=== PATIENT | male | born 1990 | race Caucasian/White ===

== ENCOUNTER 2020-04-24 18:21 | Inpatient (IN) | payer SELFPAY ==
[2020-04-24] VITALS (10 sets, daily range): BP systolic 111–156; BP diastolic 62–107; PULSE 82–122; RESP 17–25; TEMP 36.6; O2SAT 90–98; BMI 23.3
--- NOTE | 2020-04-24 18:59 | W.ED.PSYCH ---
HPI - Psych General: Chief Complaint: Psychiatric Symptoms Stated Complaint: PSYCH RELATED ISSUES Time Seen by Provider: 04/24/20 18:44 Source: patient and family (ex ) Mode of arrival: ambulatory History of Present Illness: HPI Narrative: Patient is a 29-year-old male with a history of IV drug abuse, daily alcohol intake, he claims he takes about half a gallon of whiskey every day. He also smokes meth and marijuana. He claims that he has been complaining of drugs until today. He states he has had some life stressors and when someone offered him methamphetamines today he took. He did not go into what his life stressors are. After he did the drugs he called his ex- crying and asking for help. He says he is suicidal, does not have a plan but he fears he will harm himself if he goes home. complaint: suicidal ideation Duration: constant Relieving factors: none Exacerbating factors: alcohol and drug use Context: recent alcohol abuse and recent drug abuse Associated psychiatric symptoms: depression, suicidal ideation, auditory hallucinations and visual hallucinations Associated symptoms: Reports auditory hallucinations, visual hallucinations and suicidal ideation Review of Systems General: Reports: 10 or more systems reviewed and unremarkable except in HPI and below Const: Denies: fever(s), chills or body aches Eyes: Denies: change in vision or blurry vision ENMT: Denies: throat pain, enlarged tonsils, odynophagia, hoarseness, mouth pain or swelling of lips/tongue Card: Reports: chest pain; Denies: palpitations, irregular heart rhythm, edema or swelling of feet/ankles Resp: Denies: dyspnea, productive cough or non-productive cough GI: Denies: abdominal pain, nausea or vomiting : Denies: flank pain, dysuria, urinary frequency, urinary urgency or urinary hesitancy Musc: Denies: neck pain, back pain or extremity swelling Skin/Breast: Denies: rash, pruritus or erythema Neuro: Denies: headache(s), numbness in extremities or weakness in extremities Psych: Reports: visual hallucinations, auditory hallucinations and suicidal ideation Endo: Denies: polyuria, polydipsia or tired all the time PFSH ED PFSH: Social History Current gender identity: Male Physical Exam Const: COMMON NORMALS: no acute distress, average body habitus, patient oriented x3, no limitations, healthy appearing, alert and well nourished HENMT: COMMON NORMALS: normocephalic, atraumatic and moist oral mucous membranes HEAD & SCALP: normocephalic and atraumatic Neck/C-Spine: COMMON NORMALS: no meningeal signs and no JVD Resp: COMMON NORMALS: normal respiratory effort, No retractions, No use of accessory muscles, clear to auscultation bilaterally and percussion normal AUSCULTATION: clear to auscultation bilaterally PERCUSSION: percussion normal Cardio: COMMON NORMALS: no JVD, regular rate, regular rhythm, S1 normal heart sound present, S2 normal heart sound present, No gallops present (Cardio), No clicks present (Cardio), No murmurs present (Cardio), No rub (Cardio) and Peripheral pulses 2+ throughout RATE: regular rate RHYTHM: regular rhythm HEART SOUNDS: S1 normal heart sound present and S2 normal heart sound present PERIPHERAL PULSES: Peripheral pulses 2+ throughout GI: COMMON NORMALS: Normal to inspection, nondistended, normoactive bowel sounds present, Soft to palpation, non-tender, No hepatosplenomegaly present, no masses and no bruits PALPATION: Yes Soft to palpation and Yes No hepatosplenomegaly present Extremity: COMMON NORMALS: normal to inspection, full ROM, capillary refill normal, no calf tenderness and no pedal edema Neuro: COMMON NORMALS: patient oriented x3 SENSORIUM/ORIENTATION: Yes alert MENINGEAL SIGNS: Yes no meningeal signs Skin: COMMON NORMALS: no rashes or lesions noted, no wounds, turgor normal, no jaundice, no petechiae and no mottling GENERAL SKIN EXAM: no rashes or lesions noted and turgor normal MDM - Psych MDM Narrative: Medical decision making narrative: 29-year-old male patient who was brought into the emergency department in acute psychosis, likely drug-induced. The patient admits to using methamphetamines today after not using for about 2 years. He also is an alcoholic. He was having visual and auditory hallucinations including hearing the emergency department. The patient was under the influence throughout his ED stay and was not very cooperative and at that time started flailing in bed, swinging at things in the air probably having visual hallucinations. At this point and for his safety he was chemically restrained with intramuscular ketamine and Ativan, he was also physically restrained for short time until the medication kicked in. He was medically cleared and admitted to the neuropsychiatric unit for further evaluation and management. Medical Records: Attestation: I reviewed the patient's medical records. Lab Data: Attestation: I reviewed the patient's lab results. Labs: Lab Results 04/24/20 04/24/20 04/24/20 Range/Units 18:49 18:49 19:15 WBC 11.6 H (4.0-10.0) 10^3/ uL RBC 5.26 (4.1-5.3) 10^6/u L Hgb 16.5 (11.7-16.6) g/dL Hct 50.1 (42.0-52.0) % MCV 95.2 H (80-94) fL MCH 31.4 (28.0-34.0) pg MCHC 32.9 (30.0-36.0) g/dL RDW 13.0 (12.1-15.1) % Plt Count 371 (130-400) 10^3/c mm MPV 9.5 (7.4-10.4) fL Neut % (Auto) 44.3 % Lymph % (Auto) 44.1 % Carlisle % (Auto) 7.8 % Eos % (Auto) 2.5 % Baso % (Auto) 0.4 % Neut # (Auto) 5.12 (1.8-7.7) 10^3/u L Lymph # (Auto) 5.1 H (0.8-4.8) 10^3/u L Carlisle # (Auto) 0.9 (0.2-0.9) 10^3/u L Eos # (Auto) 0.3 (0.0-0.8) 10^3/u L Baso # (Auto) 0.1 (0.0-0.1) 10^3/u L Nucleated RBC % (a uto) 0 % Nucleated RBCs # 0.0 /100WBC Sodium 139 (136-145) mmol/L Potassium 4.1 (3.5-5.1) mmol/L Chloride 103 (98-107) mmol/L Carbon Dioxide 26 (22-29) mmol/L Anion Gap 14.1 (5-19) BUN 10 (6-20) mg/dL Creatinine 0.7 (0.7-1.2) mg/dL GFR Calculation 135.3 H (90-130) mL/min Glucose 89 (65-115) mg/dL Calculated Osmolal ity 287 (285-295) mOsm/k g Calcium 9.6 (8.5-10.5) mg/dL Total Bilirubin 0.2 (0.15-1.2) mg/dL AST 68 H (0-40) U/L ALT 157 H (0-41) U/L Alkaline Phosphata se 72 (40-130) IU/L Total Protein 8.4 (6.6-8.7) g/dL Albumin 4.5 (3.5-5.2) g/dL Globulin 3.9 (1.3-4.6) g/dL Urine Color (Yellow) Urine Appearance (CLEAR) Urine pH (5-7) Ur Specific Gravit y (1.005-1.030) Urine Protein (Negative) Urine Glucose (UA) (Normal) Urine Ketones (Negative) Urine Blood (Negative) Urine Nitrate (Negative) Urine Bilirubin (Negative) Urine Urobilinogen (Negative) mg/dL Ur Leukocyte Alda ase (Negative) Salicylates < 0.3 L (3-10) mg/dL Urine Opiates Scre en Negative (Negative) ng/mL Acetaminophen < 5.0 L (10-30) ug/mL Ur Barbiturates Sc reen Negative (Negative) ng/mL Ur Phencyclidine S crn Negative (Negative) ng/mL Ur Amphetamines Sc reen Positive H (Negative) ng/mL U Benzodiazepines Scrn Negative (Negative) ng/mL Urine Cocaine Scre en Negative (Negative) ng/mL U Marijuana (THC) Screen Positive H (Negative) ng/mL Ethyl Alcohol 162 H (0-10) mg/dL 04/24/20 Range/Units 19:15 WBC (4.0-10.0) 10^3/ uL RBC (4.1-5.3) 10^6/u L Hgb (11.7-16.6) g/dL Hct (42.0-52.0) % MCV (80-94) fL MCH (28.0-34.0) pg MCHC (30.0-36.0) g/dL RDW (12.1-15.1) % Plt Count (130-400) 10^3/c mm MPV (7.4-10.4) fL Neut % (Auto) % Lymph % (Auto) % Carlisle % (Auto) % Eos % (Auto) % Baso % (Auto) % Neut # (Auto) (1.8-7.7) 10^3/u L Lymph # (Auto) (0.8-4.8) 10^3/u L [place] # (Auto) (0.2-0.9) 10^3/u L Eos # (Auto) (0.0-0.8) 10^3/u L Baso # (Auto) (0.0-0.1) 10^3/u L Nucleated RBC % (a uto) % Nucleated RBCs # /100WBC Sodium (136-145) mmol/L Potassium (3.5-5.1) mmol/L Chloride (98-107) mmol/L Carbon Dioxide (22-29) mmol/L Anion Gap (5-19) BUN (6-20) mg/dL Creatinine (0.7-1.2) mg/dL GFR Calculation (90-130) mL/min Glucose (65-115) mg/dL Calculated Osmolal ity (285-295) mOsm/k g Calcium (8.5-10.5) mg/dL Total Bilirubin (0.15-1.2) mg/dL AST (0-40) U/L ALT (0-41) U/L Alkaline Phosphata se (40-130) IU/L Total Protein (6.6-8.7) g/dL Albumin (3.5-5.2) g/dL Globulin (1.3-4.6) g/dL Urine Color Yellow (Yellow) Urine Appearance Clear (CLEAR) Urine pH 5 (5-7) Ur Specific Gravit y 1.010 (1.005-1.030) Urine Protein Neg (Negative) Urine Glucose (UA) Norm (Normal) Urine Ketones Negative (Negative) Urine Blood Neg (Negative) Urine Nitrate Negative (Negative) Urine Bilirubin Neg (Negative) Urine Urobilinogen Norm (Negative) mg/dL Ur Leukocyte Alda ase Negative (Negative) Salicylates (3-10) mg/dL Urine Opiates Scre en (Negative) ng/mL Acetaminophen (10-30) ug/mL Ur Barbiturates Sc reen (Negative) ng/mL Ur Phencyclidine S crn (Negative) ng/mL Ur Amphetamines Sc reen (Negative) ng/mL U Benzodiazepines Scrn (Negative) ng/mL Urine Cocaine Scre en (Negative) ng/mL U Marijuana (THC) Screen (Negative) ng/mL Ethyl Alcohol (0-10) mg/dL EKG Data^: EKG 1: Attestation: I personally reviewed and interpreted this EKG as follows: EKG interpretation date: 04/24/20 EKG interpretation time: 20:25 Prior EKG tracings: not available for review Interpretation: Normal sinus rhythm. Heart rate 87 bpm. Normal axis. No ST changes. Discharge Plan Discharge Patient Disposition: Admitted As Inpatient Admit Provider: Jourdan Justin Clinical Impression: Acute psychosis, Polysubstance abuse Drug-induced psychotic disorder Qualifiers: Complication of substance-induced condition: with hallucinations Qualified Code(s): F19.951 - Other psychoactive substance use, unspecified with psychoactive substance-induced psychotic disorder with hallucinations Alcohol dependence Qualifiers: Substance use status: with intoxication Complication of substance-induced condition: with delirium Qualified Code(s): F10.221 - Alcohol dependence with intoxication delirium Condition: Stable Coding Level of Care Code ED Inside Technical Sales Representative for Nancy Bolaños Exam Comprehensive
[2020-04-24 19:04] LABS: Basophils # 0.1 10^3/uL (0.0-0.1); Basophils % 0.4 %; Eosinophils # 0.3 10^3/uL (0.0-0.8); Eosinophils % 2.5 %; Hematocrit 50.1 % (42.0-52.0); Hemoglobin 16.5 g/dL (11.7-16.6); Lymphocytes # 5.1 10^3/uL (0.8-4.8); Lymphocytes % 44.1 %; Mean Corpuscular HGB Conc 32.9 g/dL (30.0-36.0); Mean Corpuscular Hemoglobin 31.4 pg (28.0-34.0); Mean Corpuscular Volume 95.2 fL (80-94); Mean Platelet Volume 9.5 fL (7.4-10.4); Monocytes # 0.9 10^3/uL (0.2-0.9); Monocytes % 7.8 %; Neutrophils # 5.12 10^3/uL (1.8-7.7); Neutrophils % 44.3 %; Nucleated Red Blood Cells % 0 %; Platelet Count 371 10^3/cmm (130-400); Red Blood Count 5.26 10^6/uL (4.1-5.3); White Blood Count 11.6 10^3/uL (4.0-10.0)
[2020-04-24 19:17] LABS: Alanine Aminotransferase 157 U/L (0-41); Albumin Level 4.5 g/dL (3.5-5.2); Alcohol Level 162 mg/dL (0-10); Alkaline Phosphatase 72 IU/L (40-130); Anion Gap 14.1 (5-19); Aspartate Amino Transferase 68 U/L (0-40); Blood Urea Nitrogen 10 mg/dL (6-20); Calcium 9.6 mg/dL (8.5-10.5); Carbon Dioxide 26 mmol/L (22-29); Chloride 103 mmol/L (98-107); Globulin 3.9 g/dL (1.3-4.6); Glomerular Filtration Rate 135.3 mL/min (90-130); Glucose 89 mg/dL (65-115); Osmolality Calculated 287 mOsm/kg (285-295); Potassium 4.1 mmol/L (3.5-5.1); Sodium 139 mmol/L (136-145); Total Bilirubin 0.2 mg/dL (0.15-1.2); Total Protein 8.4 g/dL (6.6-8.7)
[2020-04-24 19:18] LABS: Acetaminophen < 5.0 ug/mL (10-30); Salicylate < 0.3 mg/dL (3-10)
[2020-04-24] MEDS: LORazepam 2 mg/mL INJ 1 mL IM (19:53)
[2020-04-24 20:22] LABS: Amphetamines Screen Urine Positive (Negative); Barbiturates Screen Urine Negative (Negative); Benzodiazepines Screen Urine Negative (Negative); Cocaine Screen Urine Negative (Negative); Opiate Screen Urine Negative (Negative); PCP Screen Urine Negative (Negative); THC Screen Urine Positive (Negative)
[2020-04-24 22:06] LABS: Add Urine Microscopic? NO
[2020-04-24 22:29] LABS: Bilirubin Urine Neg (Negative); Blood Urine Neg (Negative); Glucose Urine UA Norm (Normal); Ketones Urine Negative (Negative); Leukocyte Esterase Urine Negative (Negative); Nitrate Urine Negative (Negative); Protein Urine Neg (Negative); Urine Appearance Clear (CLEAR); Urine Color Yellow (Yellow); Urobilinogen Urine Norm (Negative); pH Urine 5 (5-7)
--- NOTE | 2020-04-24 23:41 | PC.NURSE ---
The patient arrived on the unit at 2250. The patient had been on 1:[address] Dr. Justin to review. Received order to continue the 1:1 observation until 0100, 04/25/20. The patient was irritable upon arrival to [facility]. Removed paper scrubs and the patient is in [facility] scrubs. Offered food and fluid. Brought both to patient but he was again asleep. 1:1 staff member sitting at doorway to room. Reviewed all with shredding machine knife changerMya Moses.
--- NOTE | 2020-04-25 01:03 | PC.NURSE ---
The patient has been sleeping. There has been no aggression. 1:1 order was through 1 am today. 1:1 order discontinued. The 1:1 sitter has been excused. The patient will be monitored on 15 minute checks.
[2020-04-25] MEDS: OLANZapine 5 mg ODT PO (02:54)
[2020-04-25] MEDS: hyDROXYzine 25 mg Capsule 50 MG PO (02:54)
--- NOTE | 2020-04-25 02:57 | PC.NURSE ---
Patient woke up agitated and anxious. 50mg visteril and 5mg Zyprxa given for agitation and anxiety.
--- NOTE | 2020-04-25 03:28 | PC.NURSE ---
The patient was up and walked to the nurse's station at 0245. He was unsure of his current situation. Oriented him to hospital, U, to be seen by Dr. Justin later today. The patient wanted to leave and attempted to open a locked exit door. The patient was redirected. He requested fluids. He drank several cartons of orange juice. Ice cream for snack. Did not want a sandwich. Zyprexa 5 mg po and Vistaril 50 mg po given to prevent additional agitation and anxiety. The patient was moved to room 150-2 after complaining room 170 was too cold. At this time the patient is in bed resting.
--- NOTE | 2020-04-25 05:33 | PC.NURSE ---
Skin assessment revealed no wounds or injuries.
[2020-04-25 06:00] VITALS: RESP 16
[2020-04-25 13:30] VITALS: BP 107/65; PULSE 71; RESP 18; TEMP 36.6; O2SAT 97
[2020-04-25] MEDS: ARIPiprazole 10 mg Tablet PO ×2 (13:33→13:35)
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
[2020-04-25 21:24] VITALS: BP 117/66; PULSE 70; RESP 15; TEMP 37; O2SAT 96
[2020-04-26 06:00] VITALS: BP 130/89; PULSE 100; RESP 18; TEMP 36.7; O2SAT 97
[2020-04-26] MEDS: multivitamin therapeutic Tablet 1 TAB PO (07:36)
[2020-04-26] MEDS: folic acid 1 mg Tablet PO (07:36)
[2020-04-26] MEDS: thiamine 100 mg Tablet PO (07:36)
[2020-04-26] MEDS: ARIPiprazole 10 mg Tablet PO (07:36)
[2020-04-26 14:00] VITALS: BP 119/77; PULSE 70; RESP 18; TEMP 36.7; O2SAT 96
--- NOTE | 2020-04-26 18:47 | P.PN_ITS ---
Subjective NPU Subjective: Interval history: Dago spent his time filling out paperwork with the treatment team for sober living treatment. He endorses a commitment to getting himself in order by following through with that as soon as it is available. He endorses however he has supports in place to manage his addiction until then. We discussed the risk inherent in him going home prior to the Super Bowl. He was able to contract for safety. Mental Status Exam MSE Comments: This is a well-nourished, well-developed white male and hospital scrubs with limited grooming and eye contact looking fairly disheveled. No abnormal movements except for resolving psychomotor retardation. Cooperative with exam in no acute distress. Speech was more spontaneous and more normal rate and volume. Mood described as better, affect less subdued. Thought process organized. Thought content: Patient denied suicidal or homicidal ideation, there were no delusions reported and paranoia resolving. He denied auditory or visual hallucinations. Attention and concentration were intact and memory appeared more reliable but none were formally tested. He is alert and oriented x3. Insight and judgment are improving, impulse control is limited. Vitals/I&O/Wt Last Vital Signs Temp 98.5 F 04/26/20 22:00 Pulse 64 04/26/20 22:00 Resp 17 04/26/20 22:00 BP 115/72 04/26/20 22:00 Pulse Ox 97 04/26/20 22:00 Data NPU : 04/24/20 18:49 04/24/20 18:49 A&P Additional A&P Information (1) Acute psychosis: (2) Drug-induced psychotic disorder: (3) Polysubstance abuse: (4) Alcohol dependence: (5) Methamphetamine use disorder, moderate, in early remission: (6) Nicotine dependence, unspecified, uncomplicated: (7) Cannabis use disorder, severe, dependence: (8) Alcohol use disorder, severe, dependence: Additional A&P Information This is a 29-year-old white male with a long history of addiction and limited treatment history who presents acutely psychotic with active addiction open to a medication trial to assist with his thought disorder. 1. Continue current medication. 2. Continue every 15 minute checks for safety. 3. Encourage individual, group and milieu therapies. 4. Encourage sober living treatment after discharge at the highest level of care to which she is willing to commit. Involuntary Hold Information 96 Hour Hold: 96 Hour Involuntary Admission: Yes 96 Hour Hold Ending Date: 04/30/20 96 Hour Hold Ending Time: 20:23 Attestations NPU Medical Necessity Statement*: Inpatient hospitalization is medically necessary and the clinically appropriate intervention at this time. We will monitor medications and make changes as indicated. Likely length of stay 1-3 days. Tentative plan for discharge in the morning. Coding Level of Care Code Acute Warehouse Operator for Nancy Bolaños
[2020-04-26 22:00] VITALS: BP 115/72; PULSE 64; RESP 17; TEMP 36.9; O2SAT 97
--- NOTE | 2020-04-27 05:09 | PC.NURSE ---
Pm Assessment Pt stayed in his room most of the evening. Pt said he feels like crap today. Pt denied pain, Denies SI/HI, contracted for safety, Pt denies AH/VH. Pt came out of room for medication and snack returning shortly after. Will continue to monitor pt. Pt denies any alcohol withdrawl symptoms at this time. Pt offered fluids all night, stated, I don't drink water, it rusts my pipes, I want tea, something other than the juice and milk I have had. Pt has slept most of the evening cooperative with staff.
[2020-04-27 06:00] VITALS: BP 128/70; PULSE 63; RESP 18; TEMP 36.8; O2SAT 98
[2020-04-27] MEDS: ARIPiprazole 10 mg Tablet PO (08:26)
[2020-04-27] MEDS: thiamine 100 mg Tablet PO (08:27)
[2020-04-27] MEDS: multivitamin therapeutic Tablet 1 TAB PO (08:27)
[2020-04-27] MEDS: folic acid 1 mg Tablet PO (08:27)
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
[2020-04-27 09:46] VITALS: BP 128/70; PULSE 63; RESP 18; TEMP 36.8; O2SAT 98
== END 2020-04-27 10:15 | disposition home or self-care (01) | DRG 885 ==
LOC: ER 20:41 → NP 21:05
PROVIDERS: Emergency Medicine; Admitting Provider Psychiatry & Neurology Psychiatry; Emergency Provider Family Medicine; Visit Provider Psychiatry & Neurology Psychiatry
DX: F23 Brief psychotic disorder (principal); F10.221 Alcohol dependence with intoxication delirium; R45.851 Suicidal ideations; F19.951 Other psychoactive substance use, unspecified with psychoactive substance-induced psychotic disorder with hallucinations; Y90.6 Blood alcohol level of 120-199 mg/100 ml; F15.21 Other stimulant dependence, in remission; F12.20 Cannabis dependence, uncomplicated; F17.210 Nicotine dependence, cigarettes, uncomplicated
CPT/HCPCS: 12345; 80053; 80306; 80307; 81003; 85025; 96372; 99281; J2060; J3490

== ENCOUNTER 2020-05-28 18:57 | Emergency (ER) | payer SELFPAY ==
[2020-05-28] MEDS: haloperidol inj 5 mg/mL INJ 1 mL IM (19:02)
[2020-05-28] MEDS: LORazepam 2 mg/mL INJ 1 mL IM (19:02)
[2020-05-28 19:03] VITALS: BP 145/91; PULSE 107; RESP 24; TEMP 36.6; O2SAT 93; BMI 25.0
--- NOTE | 2020-05-28 19:04 | PC.NURSE ---
[facility]'s [place] and [place] [employer] in room with patient, Dr. Galindo, ED nurses, and [facility] security.
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
--- NOTE | 2020-05-28 19:17 | XR_ITS ---
WS: [id number] Portable AP upright chest, 05/28/2020 Clinical Data: reduced breath sounds Comparison: None. Findings: No nodules, masses or effusions are seen. The heart is normal. The pulmonary vascularity is not increased. No pneumonia or pneumothorax is seen. There are monitor leads on the chest wall. XR/XR chest 1V portable [id number] Impression: Negative chest.
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
--- NOTE | 2020-05-28 19:18 | PC.NURSE ---
patient in retraint bed since 1910, security, ED charge nurse, and ED patient nurse in room at this time.
--- NOTE | 2020-05-28 19:19 | ECG_ITS ---
[facility] ED Test Date: 2020-05-28 Pat Name: Dago Burgos Department: Room: Gender: Male Community Artist: : 1990 Requested By: Alberto Galindo Order Number: [id number] MD: Vidhya Calderon M.D. Measurements Intervals Raymond Rate: 89 P: 53 FL: 144 QRS: 110 QRSD: 98 T: 11 QT: 352 QTc: 429 Interpretive Statements SINUS RHYTHM LEFT POSTERIOR FASCICULAR BLOCK [QRS AXIS > 109, INFERIOR Q] Compared to ECG 04/23/2018 13:37:16 Left posterior fascicular block now present Electronically Signed On 05-29-2020 18:57:02 CHEMICAL LIBRARIAN by Vidhya Calderon M.D. [id number]
[2020-05-28 19:20] VITALS: BP 145/91; PULSE 92; RESP 23; O2SAT 92
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
--- NOTE | 2020-05-28 19:26 | PC.NURSE ---
EKG taken and given to Dr. Galindo
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
--- NOTE | 2020-05-28 19:32 | PC.NURSE ---
Patient taken to CT with ED charge nurse, security, ED nurse tech, and CT staff. Pt on transport monitor.
[2020-05-28 19:38] LABS: Basophils # 0.1 10^3/uL (0.0-0.1); Basophils % 0.5 %; Eosinophils # 0.2 10^3/uL (0.0-0.8); Eosinophils % 1.6 %; Hematocrit 46.9 % (42.0-52.0); Hemoglobin 15.6 g/dL (11.7-16.6); Lymphocytes % 45.3 %; Mean Corpuscular HGB Conc 33.3 g/dL (30.0-36.0); Mean Corpuscular Hemoglobin 31.5 pg (28.0-34.0); Mean Corpuscular Volume 94.6 fL (80-94); Mean Platelet Volume 9.8 fL (7.4-10.4); Monocytes # 0.9 10^3/uL (0.2-0.9); Neutrophils # 4.85 10^3/uL (1.8-7.7); Neutrophils % 43.9 %; Nucleated Red Blood Cells % 0 %; Platelet Count 301 10^3/cmm (130-400); Red Blood Count 4.96 10^6/uL (4.1-5.3); White Blood Count 11.1 10^3/uL (4.0-10.0)
[2020-05-28 19:48] VITALS: BP 135/87; PULSE 84; RESP 23; O2SAT 93
[2020-05-28] MEDS: sodium chloride 0.9% 1,000 ML 999 ML IV (19:49)
--- NOTE | 2020-05-28 19:50 | PC.NURSE ---
Patient back in ED room [address] Patient taken out of restraint bed to move to CT table and not placed back into restraints after CT was performed.
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
--- NOTE | 2020-05-28 19:59 | PC.NURSE ---
patient resting comfortably in right lateral position with bed in semi fowlers
[2020-05-28 20:00] VITALS: BP 102/59; PULSE 81; RESP 18; O2SAT 93
[2020-05-28 20:06] LABS: Alanine Aminotransferase 251 U/L (0-41); Albumin Level 4.3 g/dL (3.5-5.2); Alcohol Level 197 mg/dL (0-10); Alkaline Phosphatase 65 IU/L (40-130); Aspartate Amino Transferase 108 U/L (0-40); Blood Urea Nitrogen 10 mg/dL (6-20); Calcium 8.8 mg/dL (8.5-10.5); Carbon Dioxide 23 mmol/L (22-29); Chloride 103 mmol/L (98-107); Creatine Phosphokinase 123 U/L (39-308); Globulin 3.7 g/dL (1.3-4.6); Glucose 98 mg/dL (65-115); Osmolality Calculated 285 mOsm/kg (285-295); Salicylate 0.6 mg/dL (3-10); Sodium 138 mmol/L (136-145); Thyroid Stimulating Hormone 1.17 uIU/mL (0.27-4.20); Total Bilirubin 0.3 mg/dL (0.15-1.2)
[2020-05-28 20:07] LABS: Acetaminophen < 5.0 ug/mL (10-30)
--- NOTE | 2020-05-28 20:15 | PC.NURSE ---
Xray, ED nurse tech, and ED patient nurse in room to obtain ordered xrays
--- NOTE | 2020-05-28 20:17 | PC.NURSE ---
xray in room
[2020-05-28 20:18] LABS: Lactate (Lactic Acid level) 1.9 mmol/L (0.5-2.2)
[2020-05-28 20:29] LABS: Lithium 0.1 mmol/L (0.6-1.2)
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
[2020-05-28 20:37] LABS: ABG PCO2 41.1 mmHg (35-45); ABG PH Result 7.33 (7.35-7.45); Alveolar-Arterial Oxygen Gradi 1.5 mmHg (5-10); Arterial Blood Gas Hematocrit 47.5 % (42-52); Base Excess ABG -3.9 mmol/L (-2.0-2.0); Blood Gas Sample Site Brachial, right; Blood Gas Sample Type Arterial; Carboxyhemoglobin 3.1 %THgb (0.4-20.1); HCO3 ABG 21.8 mmol/L (22-26); HGB O2 Sat 93.1 % (95-100); Ionized Calcium Level - ABG 1.2 mmol/L (1.1-1.4); Methemoglobin 0.4 % (0.4-1.5); Oxygen Device ROOM AIR; Oxygen Saturation ABG 96.5; PO2 ABG 87.7 mmHg (80.0-100.0); Potassium Level - ABG 4.2 mmol/L (3.5-5.0); Total Hemoglobin 15.5 g/dL (14-18)
--- NOTE | 2020-05-28 20:37 | PC.NURSE ---
Per Dr. Josie salamanca UA
--- NOTE | 2020-05-28 20:53 | PC.NURSE ---
Report called to Annemarie Dhillon RN at [facility]
[2020-05-28 21:49] VITALS: BP 104/61; PULSE 82; RESP 18; O2SAT 91
== END 2020-05-28 21:50 | disposition other institution (70) ==
LOC: ER 19:11
PROVIDERS: Emergency Provider Family Medicine
DX: S02.92XA Unspecified fracture of facial bones, initial encounter for closed fracture (principal); F19.10 Other psychoactive substance abuse, uncomplicated; F10.20 Alcohol dependence, uncomplicated; Y04.8XXA Assault by other bodily force, initial encounter
CPT/HCPCS: 36600; 70450; 70486; 71045; 71250; 72040; 74176; 80051; 80053; 80178; 80307; 82330; 82550; 82805; 83605; 84443; 85025; 93005; 96360; 96372; 99285; J1630; J2060; J7030

== ENCOUNTER 2021-06-13 13:30 | Emergency (ER) | payer SELFPAY ==
[2021-06-13 13:44] VITALS: BP 128/78; PULSE 109; RESP 18; TEMP 37.4; O2SAT 97; BMI 29.9
[2021-06-13 13:52] VITALS: BP 128/78; RESP 18
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
[2021-06-13] MEDS: CELEcoxib 200 mg Capsule 400 MG PO (14:09)
--- NOTE | 2021-06-13 14:17 | PC.NURSE ---
Angel wrap applied to right ankle. Patient educated on pulse motor sensation assessment that needs to be done at home to ensure his wrap is on appropriately. Patient verbalized understanding.
--- NOTE | 2021-06-13 14:38 | PC.NURSE ---
Discharge vitals:84 HR 94% 132/85 16RR
== END 2021-06-13 14:38 | disposition home or self-care (01) ==
PROVIDERS: Emergency Provider Nurse Practitioner Family
DX: S93.401A Sprain of unspecified ligament of right ankle, initial encounter (principal); F17.210 Nicotine dependence, cigarettes, uncomplicated; Y04.2XXA Assault by strike against or bumped into by another person, initial encounter
CPT/HCPCS: 73610; 99283

== ENCOUNTER → 2021-06-17 14:19 | Outpatient (BNVA) | payer SELFPAY | PROVIDERS: Referring Provider Family Medicine; Visit Provider Podiatrist Foot & Ankle Surgery | DX: S92.314A Nondisplaced fracture of first metatarsal bone, right foot, initial encounter for closed fracture (principal); X58.XXXA Exposure to other specified factors, initial encounter | CPT/HCPCS: 73610; 73630 ==

== ENCOUNTER 2021-06-17 14:50 | Outpatient (CLI) | payer SELFPAY | END 2021-06-17 14:51 | disposition home or self-care (01) | LOC: SPT 14:51 | PROVIDERS: Visit Provider Podiatrist Foot & Ankle Surgery | DX: Z46.89 Encounter for fitting and adjustment of other specified devices (principal); S92.311D Displaced fracture of first metatarsal bone, right foot, subsequent encounter for fracture with routine healing; X58.XXXD Exposure to other specified factors, subsequent encounter | CPT/HCPCS: 97760; L4361 ==

== ENCOUNTER → 2021-07-01 14:47 | Outpatient (BNVA) | payer SELFPAY | PROVIDERS: Visit Provider Podiatrist Foot & Ankle Surgery | DX: S92.311D Displaced fracture of first metatarsal bone, right foot, subsequent encounter for fracture with routine healing (principal); X58.XXXD Exposure to other specified factors, subsequent encounter | CPT/HCPCS: 73630 ==

== ENCOUNTER → 2022-01-20 15:01 | Outpatient (BNVA) | payer SELFPAY | PROVIDERS: Visit Provider Nurse Practitioner Family | DX: R50.9 Fever, unspecified (principal); R05.9 Cough, unspecified; B34.9 Viral infection, unspecified | CPT/HCPCS: 87400; 87426 ==

== ENCOUNTER 2022-03-26 21:03 | Emergency (ER) | payer MEDICAID, SELFPAY ==
[2022-03-26 21:07] VITALS: BP 128/88; PULSE 85; RESP 18; TEMP 36.6; O2SAT 98; BMI 29.9
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
--- NOTE | 2022-03-27 13:16 | W.PM.PSYCONS ---
Psych Consult HPI History of Present Illness Dago Burgos is a 31 year old male who presented to the emergency department with the following report: A psychiatric consult was requested as there was some consideration of discharge and wanting to explore whether he was safe for that. He is known to this underwriter solicitation director from past psychiatric inpatient stay and an excerpt of that note is included below for context. Meds Home Medications and Allergies Home Medications Medication Instructions Recorded Confirmed Last Taken Type albuterol sulfate 90 mcg/actuation 2 puff inhalation Q6H PRN 03/27/22 03/27/22 Unknown History aerosol inhaler Shortness Of Breath Allergies Allergy/AdvReac Type Severity Reaction Status Date / Time No Known Allergies Allergy Verified 03/27/22 10:34 PFSH NPU PFSH: Medical History (Updated 03/27/22 @ 13:38 by José Luis Ram DO) Alcohol dependence Social History Smoking and tobacco status: current every day smoker Current gender identity: Male Vitals/I&O/Wt Last Vital Signs Temp 98 F 03/26/22 21:07 Pulse 85 03/26/22 21:07 Resp 18 03/26/22 21:07 BP 128/88 03/26/22 21:07 Pulse Ox 98 03/26/22 21:07 O2 Del Method 03/26/22 21:07 Weight last 48 hrs Weight 81.647 kg Involuntary Hold Information 96 Hour Hold: 96 Hour Involuntary Admission: Yes 96 Hour Hold Ending Date: 04/30/20 96 Hour Hold Ending Time: 20:23 Coding Level of Care Code Acute Community Ambassador for Nancy Bolaños
== END 2022-03-26 22:08 | disposition home or self-care (01) ==
PROVIDERS: Emergency Provider Emergency Medicine
DX: Z04.6 Encounter for general psychiatric examination, requested by authority (principal); F10.90 Alcohol use, unspecified, uncomplicated; Z79.82 Long term (current) use of aspirin; F17.210 Nicotine dependence, cigarettes, uncomplicated
CPT/HCPCS: 99283

== ENCOUNTER 2022-03-27 10:12 | Emergency (ER) | payer MEDICAID, SELFPAY ==
[2022-03-27 10:15] VITALS: BP 150/103; PULSE 82; RESP 14; TEMP 36.8; O2SAT 98; BMI 31.7
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
[2022-03-27 11:07] LABS: Basophils # 0.1 10^3/uL (0.0-0.1); Basophils % 0.3 %; Eosinophils # 0.1 10^3/uL (0.0-0.8); Hematocrit 51.2 % (42.0-52.0); Hemoglobin 16.7 g/dL (11.7-16.6); Lymphocytes # 3.1 10^3/uL (0.8-4.8); Lymphocytes % 21.8 %; Mean Corpuscular HGB Conc 32.6 g/dL (30.0-36.0); Mean Corpuscular Hemoglobin 31.7 pg (28.0-34.0); Mean Corpuscular Volume 97.2 fl (80-94); Mean Platelet Volume 9.8 fL (7.4-10.4); Monocytes # 1.2 10^3/uL (0.2-0.9); Monocytes % 8.5 %; Neutrophils # 9.79 10^3/uL (1.8-7.7); Neutrophils % 68.1 %; Nucleated Red Blood Cells % 0 %; Platelet Count 309 10^3/cmm (130-400); Red Blood Count 5.27 10^6/uL (4.1-5.3); Red Cell Distribution Width 12.8 % (12.1-15.1); White Blood Count 14.4 10^3/uL (4.0-10.0)
[2022-03-27 11:21] LABS: Alanine Aminotransferase 99 U/L (0-41); Albumin Level 4.5 g/dL (3.5-5.2); Alkaline Phosphatase 63 U/L (40-130); Anion Gap 12.5 (5-19); Aspartate Amino Transferase 38 U/L (0-40); Blood Urea Nitrogen 10 mg/dL (6-20); Calcium 9.2 mg/dL (8.5-10.5); Carbon Dioxide 28 mmol/L (22-29); Chloride 101 mmol/L (98-107); Globulin 3.5 g/dL (1.3-4.6); Glomerular Filtration Rate 99.8 mL/min (90-130); Glucose 101 mg/dL (65-115); Osmolality Calculated 283 mOsm/kg (285-295); Potassium 4.5 mmol/L (3.5-5.1); Sodium 137 mmol/L (136-145); Total Bilirubin 0.7 mg/dL (0.15-1.2)
[2022-03-27 11:26] LABS: Acetaminophen < 5.0 ug/mL (10-30); Salicylate < 0.3 mg/dL (3-10)
[2022-03-27 11:43] LABS: Amphetamines Screen Urine Negative (Negative); Barbiturates Screen Urine Negative (Negative); Benzodiazepines Screen Urine Negative (Negative); Cocaine Screen Urine Negative (Negative); Opiate Screen Urine Negative (Negative); PCP Screen Urine Negative (Negative); THC Screen Urine Positive (Negative)
== END 2022-03-27 14:02 | disposition home or self-care (01) ==
PROVIDERS: Emergency Provider Family Medicine
DX: F10.20 Alcohol dependence, uncomplicated (principal); F17.210 Nicotine dependence, cigarettes, uncomplicated
CPT/HCPCS: 36415; 80053; 80306; 80307; 85025; 99285

== ENCOUNTER 2022-05-30 17:17 | Inpatient (IN) | payer MEDICAID, SELFPAY ==
[2022-05-30 17:19] VITALS: BP 122/78; PULSE 73; RESP 20; O2SAT 99; BMI 25.7
--- NOTE | 2022-05-30 17:23 | XRR_ITS ---
PROCEDURE INFORMATION: Exam: XR Chest Exam date and time: 05/30/2022 5:28 PM Age: 31 years old Clinical indication: Other: Possible overdose; Additional info: Drug overdose, suicidal ideations TECHNIQUE: Imaging protocol: Radiologic exam of the chest. Views: 1 view. COMPARISON: CR XR chest 1V portable [id number] 05/28/2020 8:06 PM FINDINGS: Lungs: Unremarkable. No consolidation. Pleural spaces: Unremarkable. No pleural effusion. No pneumothorax. Heart/Mediastinum: Unremarkable. No cardiomegaly. Bones/joints: Unremarkable. XR/XR chest 1V portable [id number] IMPRESSION: No acute findings.
--- NOTE | 2022-05-30 17:26 | ED_ITS ---
Documented by User: Colin Sanchez DO 05/30/22 17:36 HPI - Overdose General: Chief Complaint: Alcohol Stated Complaint: OVERDOSE Time Seen by Provider: 05/30/22 17:23 History of Present Illness: Patient presents to the ER by EMS with complaints of overdose of possible Tylenol Motrin and alcohol. EMS states that patient was making suicidal ideations to them and wanting them just to kill him and put him out of his misery. Patient states he has been drinking all day long and has taken approximately at least 5000 mg of Tylenol 800 mg of Motrin today. Onset (ago): unknown Substance Ingested: acetaminophen: Strength of Substance: 500 Number of Pills Ingested: 10 Total Dose: 5000 ibuprofen: Strength of Substance: 200 Number of Pills Ingested: 4 Total Dose: 800 Intent: suicide attempt Context: Intentional Overdose: drug/ETOH problems Context: Accidental Overdose: was drinking then took pills Associated symptoms: depression Treatments Prior to Arrival: antiemetics [facility] ED PFSH: Medical History Alcohol dependence Social History Smoking and tobacco status: current every day smoker Current gender identity: Male Physical Exam Const: COMMON NORMALS: patient oriented x3 EXAM LIMITATIONS: altered mental status and behavioral limitations HENMT: COMMON NORMALS: normocephalic, atraumatic and hearing grossly normal bilaterally HEAD & SCALP: normocephalic and atraumatic Eye: COMMON NORMALS: Equal, round and reactive pupils present and EOMs intact bilaterally PUPIL: Yes Equal, round and reactive pupils present Neck/C-Spine: COMMON NORMALS: full ROM, no lymphadenopathy, supple, no meningeal signs, no JVD and Thyroid normal THYROID: Thyroid normal Lymph: LYMPHATIC: no lymphadenopathy noted Chest: COMMONS NORMALS: normal inspection of the chest Resp: COMMON NORMALS: normal respiratory effort, No retractions, No use of accessory muscles and clear to auscultation bilaterally AUSCULTATION: clear to auscultation bilaterally Cardio: COMMON NORMALS: no JVD, regular rate, regular rhythm, S1 normal heart sound present, S2 normal heart sound present and No gallops present (Cardio) RATE: regular rate RHYTHM: regular rhythm HEART SOUNDS: S1 normal heart sound present and S2 normal heart sound present GI: COMMON NORMALS: Soft to palpation, No hepatosplenomegaly present and no masses PALPATION: Yes Soft to palpation, Yes Tenderness to palpation present (GI), No Guarding due to palpation present (GI), No Rigid due to palpation and Yes No hepatosplenomegaly present : COMMON NORMALS: Yes no CVA tenderness BLADDER/KIDNEY EXAM: Yes no CVA tenderness Back/Pelvis: COMMON NORMALS: no CVA tenderness Neuro: COMMON NORMALS: patient oriented x3, CN's II-XII intact bilaterally, moves all extremities, no focal motor deficits and no sensory deficits noted MENINGEAL SIGNS: Yes no meningeal signs SPEECH: abnormal speech Details: slurred Psych: APPEARANCE: Yes disheveled ATTITUDE: Yes uncooperative SPEECH: Yes minimal MOOD & AFFECT: Yes apathetic Skin: COMMON NORMALS: no rashes or lesions noted, no wounds and turgor normal GENERAL SKIN EXAM: no rashes or lesions noted and turgor normal Course Vital Signs: Vital signs: Vital Signs Pulse Rate 98 05/30/22 20:32 Respiratory Rate 20 H 05/30/22 20:32 Blood Pressure 115/62 05/30/22 20:32 Pulse Oximetry 98 05/30/22 20:32 Oxygen Delivery Me thod 05/30/22 19:10 MDM - Overdose Differential Diagnosis Likely suicide attempt by multiple drug overdose, drug overdose, acetaminophen overdose and accidental drug ingestion Lab Data I reviewed the patient's lab results. 05/30/22 17:25 05/30/22 17:25 Radiology Impressions Chest X-Ray 05/30/22 17:23 IMPRESSION: No acute findings. Laboratory Results WBC 13.2 10^3/uL (4.0-10.0) H 05/30/22 17:25 RBC 5.22 10^6/uL (4.1-5.3) 05/30/22 17:25 Hgb 16.7 g/dL (11.7-16.6) H 05/30/22 17:25 Hct 50.5 % (42.0-52.0) 05/30/22 17:25 MCV 96.7 fl (80-94) H 05/30/22 17:25 MCH 32.0 pg (28.0-34.0) 05/30/22 17:25 MCHC 33.1 g/dL (30.0-36.0) 05/30/22 17:25 RDW 13.3 % (12.1-15.1) 05/30/22 17:25 Plt Count 311 10^3/cmm (130-400) 05/30/22 17:25 MPV 9.5 fL (7.4-10.4) 05/30/22 17:25 Neut % (Auto) 55.6 % 05/30/22 17:25 Lymph % (Auto) 36.2 % 05/30/22 17:25 Harney % (Auto) 5.6 % 05/30/22 17:25 Eos % (Auto) 0.8 % 05/30/22 17:25 Baso % (Auto) 0.5 % 05/30/22 17:25 Neut # (Auto) 7.38 10^3/uL (1.8-7.7) 05/30/22 17:25 Lymph # (Auto) 4.8 10^3/uL (0.8-4.8) 05/30/22 17:25 Harney # (Auto) 0.7 10^3/uL (0.2-0.9) 05/30/22 17:25 Eos # (Auto) 0.1 10^3/uL (0.0-0.8) 05/30/22 17:25 Baso # (Auto) 0.1 10^3/uL (0.0-0.1) 05/30/22 17:25 Nucleated RBC % (auto) 0 % 05/30/22 17:25 Nucleated RBCs # 0.0 /100WBC 05/30/22 17:25 Sodium 144 mmol/L (136-145) 05/30/22 17:25 Potassium 4.0 mmol/L (3.5-5.1) 05/30/22 17:25 Chloride 104 mmol/L (98-107) 05/30/22 17:25 Carbon Dioxide 27 mmol/L (22-29) 05/30/22 17:25 Anion Gap 17.0 (5-19) 05/30/22 17:25 BUN 10 mg/dL (6-20) 05/30/22 17:25 Creatinine 0.9 mg/dL (0.7-1.2) 05/30/22 17:25 GFR Calculation 99.8 mL/min (90-130) 05/30/22 17:25 Glucose 97 mg/dL (65-115) 05/30/22 17:25 Calculated Osmolality 297 mOsm/kg (285-295) H 05/30/22 17:25 Calcium 8.9 mg/dL (8.5-10.5) 05/30/22 17:25 Total Bilirubin 0.3 mg/dL (0.15-1.2) 05/30/22 17:25 AST 56 U/L (0-40) H 05/30/22 17:25 ALT 107 U/L (0-41) H 05/30/22 17:25 Alkaline Phosphatase 70 U/L (40-130) 05/30/22 17:25 Total Protein 7.9 g/dL (6.6-8.7) 05/30/22 17:25 Albumin 4.5 g/dL (3.5-5.2) 05/30/22 17:25 Globulin 3.4 g/dL (1.3-4.6) 05/30/22 17:25 Urine Color Yellow (Yellow) 05/30/22 21:35 Urine Appearance Clear (CLEAR) 05/30/22 21:35 Urine pH 6 (5-7) 05/30/22 21:35 Ur Specific Anthony 1.015 (1.005-1.030) 05/30/22 21:35 Urine Protein Neg (Negative) 05/30/22 21:35 Urine Glucose (UA) Norm (Normal) 05/30/22 21:35 Urine Ketones Negative (Negative) 05/30/22 21:35 Urine Blood Neg (Negative) 05/30/22 21:35 Urine Nitrate Negative (Negative) 05/30/22 21:35 Urine Bilirubin Neg (Negative) 05/30/22 21:35 Urine Urobilinogen Neg mg/dL (Negative) 05/30/22 21:35 Ur Leukocyte Esterase Negative (Negative) 05/30/22 21:35 Salicylates < 0.3 mg/dL (3-10) L 05/30/22 17:25 Urine Opiates Screen Negative ng/mL (Negative) 05/30/22 21:35 Acetaminophen < 5.0 ug/mL (10-30) L 05/30/22 17:25 Ur Barbiturates Screen Negative ng/mL (Negative) 05/30/22 21:35 Ur Phencyclidine Scrn Negative ng/mL (Negative) 05/30/22 21:35 Ur Amphetamines Screen Positive ng/mL (Negative) H 05/30/22 21:35 U Benzodiazepines Scrn Negative ng/mL (Negative) 05/30/22 21:35 Urine Cocaine Screen Negative ng/mL (Negative) 05/30/22 21:35 U Marijuana (THC) Screen Positive ng/mL (Negative) H 05/30/22 21:35 Ethyl Alcohol 198 mg/dL (0-10) H 05/30/22 22:05 EKG Data EKG 1: I personally reviewed and interpreted this EKG as follows: EKG interpretation date: 05/30/22 EKG interpretation time: 17:27 Interpretation: EKG performed at May 30, 2022 at 1727 showed normal sinus rhythm at 73 bpm borderline right axis deviation NE interval 138 QRS duration 93 QT interval of [address] or T wave changes no comparison to prior EKG Discharge Plan Discharge Patient Disposition: Admitted As Inpatient Clinical Impression: Alcohol use disorder, severe, dependence, Polysubstance abuse, Suicidal ideation Condition: Stable Coding Level of Care Code ED [employer] Mill Operator for Chg Fwd Documented by User: Annabel Schaefer MD 05/30/22 22:46 HPI - Overdose General: Chief Complaint: Alcohol Stated Complaint: OVERDOSE Time Seen by Provider: 05/30/22 17:23 Substance Ingested: acetaminophen: Total Dose: 5000 ibuprofen: Total Dose: 800 PFSH ED PFSH: Medical History Alcohol dependence Social History Smoking and tobacco status: current every day smoker Current gender identity: Male Course Vital Signs: Vital signs: Vital Signs Pulse Rate 98 05/30/22 20:32 Respiratory Rate 20 H 05/30/22 20:32 Blood Pressure 115/62 05/30/22 20:32 Pulse Oximetry 98 05/30/22 20:32 Oxygen Delivery Me thod 05/30/22 19:10 MDM - Overdose Medical Decision Making Patient presents here with suicidal ideations along with alcohol intoxication and drug abuse he is placed under 96-hour hold he is medically cleared and will admit to the psychiatric unit at this time. Lab Data 05/30/22 17:25 05/30/22 17:25 Radiology Impressions Chest X-Ray 05/30/22 17: IMPRESSION: No acute findings. Laboratory Results WBC 13.2 10^3/uL (4.0-10.0) H 05/30/22 17:25 RBC 5.22 10^6/uL (4.1-5.3) 05/30/22 17:25 Hgb 16.7 g/dL (11.7-16.6) H 05/30/22 17:25 Hct 50.5 % (42.0-52.0) 05/30/22 17:25 MCV 96.7 fl (80-94) H 05/30/22 17:25 MCH 32.0 pg (28.0-34.0) 05/30/22 17:25 MCHC 33.1 g/dL (30.0-36.0) 05/30/22 17:25 RDW 13.3 % (12.1-15.1) 05/30/22 17:25 Plt Count 311 10^3/cmm (130-400) 05/30/22 17:25 MPV 9.5 fL (7.4-10.4) 05/30/22 17:25 Neut % (Auto) 55.6 % 05/30/22 17:25 Lymph % (Auto) 36.2 % 05/30/22 17:25 Harney % (Auto) 5.6 % 05/30/22 17:25 Eos % (Auto) 0.8 % 05/30/22 17:25 Baso % (Auto) 0.5 % 05/30/22 17:25 Neut # (Auto) 7.38 10^3/uL (1.8-7.7) 05/30/22 17:25 Lymph # (Auto) 4.8 10^3/uL (0.8-4.8) 05/30/22 17:25 Harney # (Auto) 0.7 10^3/uL (0.2-0.9) 05/30/22 17:25 Eos # (Auto) 0.1 10^3/uL (0.0-0.8) 05/30/22 17:25 Baso # (Auto) 0.1 10^3/uL (0.0-0.1) 05/30/22 17:25 Nucleated RBC % (auto) 0 % 05/30/22 17:25 Nucleated RBCs # 0.0 /100WBC 05/30/22 17:25 Sodium 144 mmol/L (136-145) 05/30/22 17:25 Potassium 4.0 mmol/L (3.5-5.1) 05/30/22 17:25 Chloride 104 mmol/L (98-107) 05/30/22 17:25 Carbon Dioxide 27 mmol/L (22-29) 05/30/22 17:25 Anion Gap 17.0 (5-19) 05/30/22 17:25 BUN 10 mg/dL (6-20) 05/30/22 17:25 Creatinine 0.9 mg/dL (0.7-1.2) 05/30/22 17:25 GFR Calculation 99.8 mL/min (90-130) 05/30/22 17:25 Glucose 97 mg/dL (65-115) 05/30/22 17:25 Calculated Osmolality 297 mOsm/kg (285-295) H 05/30/22 17:25 Calcium 8.9 mg/dL (8.5-10.5) 05/30/22 17:25 Total Bilirubin 0.3 mg/dL (0.15-1.2) 05/30/22 17:25 AST 56 U/L (0-40) H 05/30/22 17:25 ALT 107 U/L (0-41) H 05/30/22 17:25 Alkaline Phosphatase 70 U/L (40-130) 05/30/22 17:25 Total Protein 7.9 g/dL (6.6-8.7) 05/30/22 17:25 Albumin 4.5 g/dL (3.5-5.2) 05/30/22 17:25 Globulin 3.4 g/dL (1.3-4.6) 05/30/22 17:25 Urine Color Yellow (Yellow) 05/30/22 21:35 Urine Appearance Clear (CLEAR) 05/30/22 21:35 Urine pH 6 (5-7) 05/30/22 21:35 Ur Specific Anthony 1.015 (1.005-1.030) 05/30/22 21:35 Urine Protein Neg (Negative) 05/30/22 21:35 Urine Glucose (UA) Norm (Normal) 05/30/22 21:35 Urine Ketones Negative (Negative) 05/30/22 21:35 Urine Blood Neg (Negative) 05/30/22 21:35 Urine Nitrate Negative (Negative) 05/30/22 21:35 Urine Bilirubin Neg (Negative) 05/30/22 21:35 Urine Urobilinogen Neg mg/dL (Negative) 05/30/22 21:35 Ur Leukocyte Esterase Negative (Negative) 05/30/22 21:35 Salicylates < 0.3 mg/dL (3-10) L 05/30/22 17:25 Urine Opiates Screen Negative ng/mL (Negative) 05/30/22 21:35 Acetaminophen < 5.0 ug/mL (10-30) L 05/30/22 17:25 Ur Barbiturates Screen Negative ng/mL (Negative) 05/30/22 21:35 Ur Phencyclidine Scrn Negative ng/mL (Negative) 05/30/22 21:35 Ur Amphetamines Screen Positive ng/mL (Negative) H 05/30/22 21:35 U Benzodiazepines Scrn Negative ng/mL (Negative) 05/30/22 21:35 Urine Cocaine Screen Negative ng/mL (Negative) 05/30/22 21:35 U Marijuana (THC) Screen Positive ng/mL (Negative) H 05/30/22 21:35 Ethyl Alcohol 198 mg/dL (0-10) H 05/30/22 22:05 Discharge Plan Discharge Patient Disposition: Admitted As Inpatient Clinical Impression: Alcohol use disorder, severe, dependence, Polysubstance abuse, Suicidal ideation Condition: Stable Coding Level of Care Code ED [employer]arge Mill Operator for Nancy Bolaños
--- NOTE | 2022-05-30 17:27 | ECG_ITS ---
[facility] Test Date: 2022-05-30 Pat Name: Dago Burgos Department: Room: Gender: Male Safety Risk Lead: : 1990 Requested By: Colin Sanchez Order Number: [id number] Nata MD: Iva Ace M.D. Measurements Intervals Endeavor Rate: 73 P: -16 CT: 138 QRS: 95 QRSD: 93 T: 77 QT: 359 QTc: 396 Interpretive Statements SINUS RHYTHM BORDERLINE RIGHT AXIS DEVIATION [QRS AXIS > 90] INTERPRETATION BASED ON A DEFAULT AGE OF 40 YEARS Compared to ECG 05/28/2020 19:26:08 Left posterior fascicular block no longer present Electronically Signed On 05-31-2022 19:38:55 CDT by Iva Ace M.D. [id number]
[2022-05-30 17:48] LABS: Basophils # 0.1 10^3/uL (0.0-0.1); Basophils % 0.5 %; Eosinophils # 0.1 10^3/uL (0.0-0.8); Eosinophils % 0.8 %; Hematocrit 50.5 % (42.0-52.0); Hemoglobin 16.7 g/dL (11.7-16.6); Lymphocytes # 4.8 10^3/uL (0.8-4.8); Lymphocytes % 36.2 %; Mean Corpuscular HGB Conc 33.1 g/dL (30.0-36.0); Mean Corpuscular Volume 96.7 fl (80-94); Mean Platelet Volume 9.5 fL (7.4-10.4); Monocytes # 0.7 10^3/uL (0.2-0.9); Monocytes % 5.6 %; Neutrophils # 7.38 10^3/uL (1.8-7.7); Neutrophils % 55.6 %; Nucleated Red Blood Cells % 0 %; Platelet Count 311 10^3/cmm (130-400); Red Blood Count 5.22 10^6/uL (4.1-5.3); Red Cell Distribution Width 13.3 % (12.1-15.1); White Blood Count 13.2 10^3/uL (4.0-10.0)
[2022-05-30 18:00] LABS: Alanine Aminotransferase 107 U/L (0-41); Albumin Level 4.5 g/dL (3.5-5.2); Alcohol Level 289 mg/dL (0-10); Alkaline Phosphatase 70 U/L (40-130); Aspartate Amino Transferase 56 U/L (0-40); Blood Urea Nitrogen 10 mg/dL (6-20); Calcium 8.9 mg/dL (8.5-10.5); Carbon Dioxide 27 mmol/L (22-29); Chloride 104 mmol/L (98-107); Globulin 3.4 g/dL (1.3-4.6); Glomerular Filtration Rate 99.8 mL/min (90-130); Glucose 97 mg/dL (65-115); Osmolality Calculated 297 mOsm/kg (285-295); Sodium 144 mmol/L (136-145); Total Bilirubin 0.3 mg/dL (0.15-1.2); Total Protein 7.9 g/dL (6.6-8.7)
[2022-05-30 18:19] LABS: Acetaminophen < 5.0 ug/mL (10-30); Salicylate < 0.3 mg/dL (3-10)
[2022-05-30 19:10] VITALS: BP 99/54; PULSE 70; RESP 22; O2SAT 95
--- NOTE | 2022-05-30 19:11 | PC.NURSE ---
pt in room resting with eyes closed. pt very drowsy when trying to arouse.
[2022-05-30] MEDS: sodium chloride 0.9% 1,000 ML 999 ML IV (19:16)
[2022-05-30 19:35] VITALS: BP 120/78; PULSE 71; RESP 22; O2SAT 98
[2022-05-30 20:32] VITALS: BP 115/62; PULSE 98; RESP 20; O2SAT 98
[2022-05-30 21:41] LABS: Add Urine Microscopic? NO; Charge for UA Resulting for Rev
[2022-05-30] MEDS: ondansetron 2 mg/ML SDV 2 mL 4 MG IM (21:54)
[2022-05-30 21:57] LABS: Bilirubin Urine Neg (Negative); Blood Urine Neg (Negative); Glucose Urine UA Norm (Normal); Ketones Urine Negative (Negative); Leukocyte Esterase Urine Negative (Negative); Nitrate Urine Negative (Negative); Protein Urine Neg (Negative); Specific Gravity, Urine 1.015 (1.005-1.030); Urine Appearance Clear (CLEAR); Urine Color Yellow (Yellow); Urobilinogen Urine Neg (Negative); pH Urine 6 (5-7)
--- NOTE | 2022-05-30 22:00 | PC.NURSE ---
Patient read 96 hour rights paperwork by this nurse with Security personnel at bedside. Patient voiced no questions, copy of rights left at bedside with patient.
[2022-05-30 22:10] LABS: THC Screen Urine Positive (Negative)
[2022-05-30 22:11] LABS: Amphetamines Screen Urine Positive (Negative); Barbiturates Screen Urine Negative (Negative); Benzodiazepines Screen Urine Negative (Negative); Cocaine Screen Urine Negative (Negative); Opiate Screen Urine Negative (Negative); PCP Screen Urine Negative (Negative)
[2022-05-30 22:28] LABS: Alcohol Level 198 mg/dL (0-10)
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
[2022-05-31] MEDS: ketamine 100 mg/mL Inj 5 mL 280 MG IM (00:39)
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
[2022-05-31 01:51] VITALS: BP 126/74; PULSE 77; RESP 20; TEMP 36.6; O2SAT 96
[2022-05-31 03:33] VITALS: BMI 25.7
[2022-05-31 06:00] VITALS: BP 121/77; PULSE 92; RESP 18; TEMP 36.7; O2SAT 98
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
[2022-05-31] MEDS: hyDROXYzine 25 mg Capsule 50 MG PO (06:47)
--- NOTE | 2022-05-31 06:49 | PC.NURSE ---
po vistaril given as ordered per pt request stating I need something for my anxiety.
[2022-05-31] MEDS: folic acid 1 mg Tablet PO (09:14)
[2022-05-31] MEDS: thiamine 100 mg Tablet PO (09:14)
[2022-05-31] MEDS: multivitamin therapeutic Tablet 1 TAB PO (09:14)
[2022-05-31 14:00] VITALS: BP 133/85; PULSE 66; RESP 20; TEMP 36.6; O2SAT 97
[2022-05-31 22:00] VITALS: BP 125/80; PULSE 60; RESP 16; TEMP 36.8; O2SAT 98
[2022-06-01 06:00] VITALS: BP 133/75; PULSE 97; RESP 17; TEMP 36.6; O2SAT 98
[2022-06-01] MEDS: thiamine 100 mg Tablet PO (08:53)
[2022-06-01] MEDS: folic acid 1 mg Tablet PO (08:53)
[2022-06-01] MEDS: multivitamin therapeutic Tablet 1 TAB PO (08:53)
[2022-06-01 14:00] VITALS: BP 126/80; PULSE 62; RESP 16; TEMP 36.8; O2SAT 98
--- NOTE | 2022-06-01 14:37 | P.NPUPN_ITS ---
Subjective NPU Subjective: Patient is a 31-year-old white male with a history of alcohol dependence admitted with suicidal ideation. The patient had admitted to having significant tolerance to alcohol reporting that he drank approximately half a gallon during periods of binge drinking. He had reported a family history significant alcohol abuse. He had reported that he had not been in any treatment for his alcohol use despite many people important in his life having suggested that he needed help with alcohol use. He reported no physical consequences of alcohol withdrawal and reported no history of alcohol withdrawal symptoms requiring any acute observation. He had reported last use of alcohol on 05/30/2022. Mental Status Exam MSE Comments: This is a well-nourished, well-developed white male and hospital scrubs with adequate grooming and eye contact. No abnormal movements except for mild psychomotor retardation. Cooperative with exam in no acute distress. Speech was slightly decreased in rate and volume. Mood described as okay, affect slightly subdued and mood incongruent. Thought process organized. T hought content: Patient denied suicidal or homicidal ideation. there were no delusions reported or noted. He denied auditory or visual hallucinations. Attention and concentration were intact and memory appeared somewhat reliable but none were formally tested. He is alert and oriented x3. Insight and judgment appear impaired. , impulse control is limited versus impaired. Vitals/I&O/Wt Last Vital Signs Temp 97.8 F 06/01/22 06:00 Pulse 97 06/01/22 06:00 Resp 17 06/01/22 06:00 BP 133/75 06/01/22 06:00 Pulse Ox 98 06/01/22 06:00 O2 Del Method 06/01/22 06:00 Weight last 48 hrs Weight 68.039 kg Weight 68.039 kg Data NPU 05/30/22 17:25 05/30/22 17:25 A&P Assessment and plan (1) Alcohol dependence: (2) Alcohol use: (3) Nicotine dependence, unspecified, uncomplicated: (4) Cannabis use disorder, severe, dependence: (5) Alcohol use disorder, severe, dependence: (6) Partner relational problem: (7) Suicidal ideation: (8) Methamphetamine use disorder, severe: (9) Acute psychosis: Plan This is a 31-year-old white male with a long history of addiction and some mental health issues with limited treatment history who has presented to the emergency department multiple times this year with relationship conflicts presents on a 96-hour hold again with worsening behaviors. 1.? Continue naltrexone 50 mg p.o. daily 2.? Continue every 15 minute checks for safety. 3.? Encourage individual, group therapy. 4.? Encourage sober living treatment after discharge at the highest level of care to which he is willing to commit. 5. Patient remains on [facility] protocol. Involuntary Hold Information 96 Hour Hold: 96 Hour Involuntary Admission: Yes 96 Hour Hold Ending Date: 05/08/22 96 Hour Hold Ending Time: 00:01 Attestations NPU Medical Necessity Statement*: Inpatient hospitalization is medically necessary and the clinically appropriate intervention at this time. We will monitor medications and make changes as indicated. Patient will be in the hospital for over two midnights. Likely length of stay 1-2 days. Coding Level of Care Code Acute Code for g Fwd Diagnoses Alcohol dependence F10.20 Alcohol use Z78.9 Nicotine dependence, unspecified, uncomplicated F17.200 Cannabis use disorder, severe, dependence F12.20 Alcohol use disorder, severe, dependence F10.20 Partner relational problem Z63.0 Suicidal ideation R45.851 Methamphetamine use disorder, severe F15.20 Acute psychosis F23
[2022-06-01] MEDS: nicotine 4 mg lozenge MUCOUS MEM ×2 (19:32→21:27)
[2022-06-01 20:37] VITALS: BP 123/77; PULSE 64; RESP 18; TEMP 36.7; O2SAT 96
[2022-06-02 06:00] VITALS: BP 123/69; PULSE 67; RESP 17; TEMP 36.6; O2SAT 97
[2022-06-02] MEDS: naltrexone hcl 50 mg Tablet PO (08:58)
[2022-06-02] MEDS: folic acid 1 mg Tablet PO (08:58)
[2022-06-02] MEDS: thiamine 100 mg Tablet PO (08:58)
[2022-06-02] MEDS: multivitamin therapeutic Tablet 1 TAB PO (08:58)
[2022-06-02] MEDS: nicotine 4 mg lozenge MUCOUS MEM (12:07)
[2022-06-02 14:00] VITALS: BP 138/85; PULSE 69; RESP 18; TEMP 36.6; O2SAT 96
--- NOTE | 2022-06-02 14:34 | W.PM.NPUDCS ---
Diagnoses at Discharge Discharge Diagnosis (1) Alcohol dependence: Status: Acute (2) Alcohol use: Status: Inactive (3) Nicotine dependence, unspecified, uncomplicated: Status: Acute (4) Cannabis use disorder, severe, dependence: Status: Acute (5) Alcohol use disorder, severe, dependence: Status: Acute (6) Partner relational problem: Status: Acute (7) Suicidal ideation: Status: Resolved (8) Methamphetamine use disorder, severe: Status: Acute (9) Acute psychosis: Status: Resolved Reason for Visit Reason for Visit: OVERDOSE Brief History: History of Present Illness Dago Burgos is a 31 year old male who presented to the emergency department with the report of him presenting to the EMS with intoxication and possible intentional ingestion of Tylenol and Motrin.? Plan for coming to the neuropsychiatric unit but he reported lost his composure and had to be restrained and was kept there until he was more calm.? Eventually he was admitted to the neuropsychiatric unit for definitive treatment of those issues.? 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 The discharge summary from that visit is included below for context.? Patient has been seen multiple times in the intoxicated specifically from alcohol and struggling with interpersonal issues while drunk.? He has been discharged multiple times without admission.? His BAL was 289 and his UDS was positive for cannabis and amphetamines.? He denied any ingestions or actual suicidality.? But did acknowledge having a drug and alcohol problem.? He downplayed having problems with depression and anxiety and had a significant discussion about those issues include the risks, benefits and alternatives of medications he understood but declined a trial of medication.? He did however agree to a trial of naltrexone after a discussion of the risks, benefits and alternatives, he agreed to proceed as documented in this note.? We discussed starting medication tomorrow given his polysubstance use to ensure nothing problematic within the system.? We discussed him being in needing to monitor him for evaluation for safety.? We agreed to meet Dr. Brink tomorrow for further exploration of lethality concerns.? We also discussed the need for evaluation of any weapons.? He continues to have stress and conflict and is saying that he is going to avoid the situation in the future but that is proven difficult this year. Per his 04/27/2020 [facility] inpatient psychiatric discharge summary: Discharge Diagnosis (1) Acute psychosis: ? ? ? Status: Acute (2) Drug-induced psychotic disorder: ? ? ? Status: Acute ? ? ? Qualifiers: ? Complication of substance-induced condition: with hallucinations? Qualified Code(s): F19.951 - Other psychoactive substance use, unspecified with psychoactive substance-induced psychotic disorder with hallucinations (3) Polysubstance abuse: ? ? ? Status: Acute (4) Alcohol dependence: ? ? ? Status: Acute ? ? ? Qualifiers: ? Complication of substance-induced condition: with delirium? Substance use status: with intoxication? Qualified Code(s): F10.221 - Alcohol dependence with intoxication delirium (5) Methamphetamine use disorder, moderate, in early remission: ? ? ? Status: Acute (6) Nicotine dependence, unspecified, uncomplicated: ? ? ? Status: Acute (7) Cannabis use disorder, severe, dependence: ? ? ? Status: Acute (8) Alcohol use disorder, severe, dependence: ? ? ? Status: Acute Hospital Course Hospital Course During the hospitalization, patient had routine laboratory studies which were within normal limits except for few outliers. Additionally there was a general medical evaluation which was also within normal limits and revealed no new acute processes. At the time of discharge, lethality was denied and psychosis was resolving. Mood and anxiety were well managed. Patient endorsed a plan to avoid all drugs of abuse and follow-up with the aftercare recommendations of the treatment team. Patient was evaluated and deemed to be absent credible lethality, and had achieved the maximum benefit from an inpatient hospitalization, so was discharged. Naltrexone was added to target alcohol dependence and tolerated without issues. Involuntary Hold Information 96 Hour Hold: 96 Hour Involuntary Admission: Yes 96 Hour Hold Ending Date: 05/08/22 96 Hour Hold Ending Time: 00:01 Mental Status Exam MSE Comments: This is a well-nourished, well-developed white male and hospital scrubs with adequate grooming and eye contact. No abnormal movements except for mild psychomotor retardation. Cooperative with exam in no acute distress. Speech was slightly decreased in rate and volume. Mood described as okay, affect was mood congruent and brighter. Thought process organized. Thought content: Patient denied suicidal or homicidal ideation. there were no delusions reported or noted. He denied auditory or visual hallucinations. Attention and concentration were intact and memory appeared somewhat reliable but none were formally tested. He is alert and oriented x3. Insight was poor and judgment remained guarded. His impulse control was limited. Discharge Data Studies Completed and Pending: Completed Studies During Hospitalization Category Date Time Status XR chest 1V piter ble [id number] Stat Exams 05/30/22 17: Completed Radiology Impressions Chest X-Ray 05/30/22 17: IMPRESSION: No acute findings. Laboratory Results WBC 13.2 10^3/uL (4.0 -10.0) H 05/30/22 17:25 RBC 5.22 10^6/uL (4.1 -5.3) 05/30/22 17:25 Hgb 16.7 g/dL (11.7-1 6.6) H 05/30/22 17:25 Hct 50.5 % (42.0-52.0 ) 05/30/22 17:25 MCV 96.7 fl (80-94) H 05/30/22 17:25 MCH 32.0 pg (28.0-34. 0) 05/30/22 17: MCHC 33.1 g/dL (30.0-3 6.0) 05/30/22 17:25 RDW 13.3 % (12.1-15.1 ) 05/30/22 17: Plt Count 311 10^3/cmm (130 -400) 05/30/22 17:25 MPV 9.5 fL (7.4-10.4) 05/30/22 17:25 Neut % (Auto) 55.6 % 05/30/22 17:25 Lymph % (Auto) 36.2 % 05/30/22 17:25 Ellis % (Auto) 5.6 % 05/30/22 17:25 Eos % (Auto) 0.8 % 05/30/22 17:25 Baso % (Auto) 0.5 % 05/30/22:25 Neut # (Auto) 7.38 10^3/uL (1.8 -7.7) 05/30/22 17:25 Lymph # (Auto) 4.8 10^3/uL (0.8- 4.8) 05/30/22 17:25 Ellis # (Auto) 0.7 10^3/uL (0.2- 0.9) 05/30/22 17:25 Eos # (Auto) 0.1 10^3/uL (0.0- 0.8) 05/30/22 17:25 Baso # (Auto) 0.1 10^3/uL (0.0- 0.1) 05/30/22 17:25 Nucleated RBC % (a uto) 0 % 05/30/22 17:25 Nucleated RBCs # 0.0 /100WBC 05/30/22 17:25 Sodium 144 mmol/L (136-1 45) 05/30/22 17:25 Potassium 4.0 mmol/L (3.5-5 .1) 05/30/22 17:25 Chloride 104 mmol/L (98-10 7) 05/30/22 17:25 Carbon Dioxide 27 mmol/L (22-29) 05/30/22 17:25 Anion Gap 17.0 (5-19) 05/30/22 17:25 BUN 10 mg/dL (6-20) 05/30/22 17:25 Creatinine 0.9 mg/dL (0.7-1. 2) 05/30/22 17:25 GFR Calculation 99.8 mL/min (90-1 30) 05/30/22 17:25 Glucose 97 mg/dL (65-115) 05/30/22 17:25 Calculated Osmolal ity 297 mOsm/kg (285- 295) H 05/30/22 17:25 Calcium 8.9 mg/dL (8.5-10 .5) 05/30/22 17:25 Total Bilirubin 0.3 mg/dL (0.15-1 .2) 05/30/22 17:25 AST 56 U/L (0-40) H 05/30/22 17:25 ALT 107 U/L (0-41) H 05/30/22 17:25 Alkaline Phosphata se 70 U/L (40-130) 05/30/22 17:25 Total Protein 7.9 g/dL (6.6-8.7 ) 05/30/22 17:25 Albumin 4.5 g/dL (3.5-5.2 ) 05/30/22 17:25 Globulin 3.4 g/dL (1.3-4.6 ) 05/30/22 17:25 Urine Color Yellow (Yellow) 05/30/22 21:35 Urine Appearance Clear (CLEAR) 05/30/22 21:35 Urine pH 6 (5-7) 05/30/22 21:35 Ur Specific Gravit y 1.015 (1.005-1.0 30) 05/30/22 21:35 Urine Protein Neg (Negative) 05/30/22 21:35 Urine Glucose (UA) Norm (Normal) 05/30/22 21:35 Urine Ketones Negative (Negati ve) 05/30/22 21:35 Urine Blood Neg (Negative) 05/30/22 21:35 Urine Nitrate Negative (Negati ve) 05/30/22 21:35 Urine Bilirubin Neg (Negative) 05/30/22 21:35 Urine Urobilinogen Neg mg/dL (Negati ve) 05/30/22 21:35 Ur Leukocyte Alda ase Negative (Negati ve) 05/30/22 21:35 Salicylates < 0.3 mg/dL (3-10 ) L 05/30/22 17:25 Urine Opiates Scre en Negative ng/mL (N egative) 05/30/22 21:35 Acetaminophen < 5.0 ug/mL (10-3 0) L 05/30/22 17:25 Ur Barbiturates Sc reen Negative ng/mL (N egative) 05/30/22 21:35 Ur Phencyclidine S crn Negative ng/mL (N egative) 05/30/22 21:35 Ur Amphetamines Sc reen Positive ng/mL (N egative) H 05/30/22 21:35 U Benzodiazepines Scrn Negative ng/mL (N egative) 05/30/22 21:35 Urine Cocaine Scre en Negative ng/mL (N egative) 05/30/22 21:35 U Marijuana (THC) Screen Positive ng/mL (N egative) H 05/30/22 21:35 Ethyl Alcohol 198 mg/dL (0-10) H 05/30/22 22:05 Vitals: Last Vital Signs Temp 97.8 F 06/02/22 06:00 Pulse 67 06/02/22 06:00 Resp 17 06/02/22 06:00 BP 123/69 06/02/22 06:00 Pulse Ox 97 06/02/22 06:00 O2 Del Method 06/02/22 06:00 Discharge Plan Discharge Patient Disposition: Home Condition: Stable Prescriptions: New naltrexone 50 mg Tablet 50 mg PO DAILY 30 Days Qty: 30 1RF No Action No Known Home Medications Discharge Orders: Discharge Order (Routine); Ordered 06/02/22 Ordered By: Eligio Brink Referrals: [facility] Meetings [Other] (WEDNESDAY 7:00pm [place] [facility]) [facility] - Dr. Feliz [Other] - 06/09/22 2:20 pm (Follow up with Lizz Cruz NP. ) [facility] [Outside] Discharge Diet: Usual diet Discharge Activity: Resume usual activity Patient Instructions: Alcohol Abuse, Alcoholism, Opioid Safety Discharge Attestations NPU Time Spent in Discharge Care*: less than 30 min Specific Discharge Activities: Specific discharge activities: educating patient, discussing with case folder/social workers/dc planners, documenting/other paperwork and evaluating patient/reviewing data Coding Level of Care Code Acute Chg FW DC note Diagnoses Alcohol dependence F10.20 Alcohol use Z78.9 Nicotine dependence, unspecified, uncomplicated F17.200 Cannabis use disorder, severe, dependence F12.20 Alcohol use disorder, severe, dependence F10.20 Partner relational problem Z63.0 Suicidal ideation R45.851 Methamphetamine use disorder, severe F15.20 Acute psychosis F23
[2022-06-02 14:49] VITALS: BP 123/69; PULSE 67; RESP 17; TEMP 36.6; O2SAT 97
--- NOTE | 2022-06-02 15:56 | PC.NURSE ---
Discharged at this time with family. This nurse educated pt regarding discharge, f/u appt. and meds.
== END 2022-06-02 15:58 | disposition home or self-care (01) | DRG 885 ==
LOC: ER 22:32 → NP 05-31 01:47
PROVIDERS: Emergency Medicine; Admitting Provider Psychiatry & Neurology Psychiatry; Emergency Provider Emergency Medicine; Visit Provider Psychiatry & Neurology Psychiatry
DX: F23 Brief psychotic disorder (principal); R45.851 Suicidal ideations; F15.20 Other stimulant dependence, uncomplicated; F10.229 Alcohol dependence with intoxication, unspecified; Y90.8 Blood alcohol level of 240 mg/100 ml or more; F12.20 Cannabis dependence, uncomplicated; F17.210 Nicotine dependence, cigarettes, uncomplicated; Z63.0 Problems in relationship with spouse or partner; Z78.1 Physical restraint status; Z81.1 Family history of alcohol abuse and dependence
CPT/HCPCS: 71045; 80053; 80306; 80307; 81003; 85025; 93005; 96360; 96372; 97150; 97165; 99238; 99285; J2405; J3411; J3490; J7030